=== PATIENT | male | born 1970 | race Caucasian/White ===

== ENCOUNTER 2016-03-27 11:26 | Emergency (ER) | payer SELFPAY ==
[2016-03-27 12:23] VITALS: BP 155/86; PULSE 64; TEMP 98.5
[2016-03-27 12:35] VITALS: BMI 29.8
--- NOTE | 2016-03-27 13:05 | EDPRACDOC ---
- General Stated Complaint: FELL; HIT HEAD Time Seen by Provider: 03/27/16 12:52 - History of Present Illness Onset: 8 HOURS HPI: PT PRESENTS TODAY WITH MILD HEAD AND LEFT LATERAL NECK PAIN AFTER MECHANICAL FALL THIS MORNING. PT STATES THAT HE SLIPPED ON THE ICE OUTSIDE. DENIES LOC , DIZZINESS, CP, SHOB, ABD PAIN, N/V/D. NO APPARENT DISTRESS. Pain Severity: Reports: Mild Injuries/Pain Location: Reports: head, back Reason for Fall: Reports: slipped Loss of Consciousness: no loss of consciousness Associated Symptoms (Fall): Reports: denies symptoms Allergies/Adverse Reactions: Allergies No Known Allergies Allergy (Verified 12/29/15 11:55) Home Medications: Ambulatory Orders Omeprazole 20 mg PO DAILY 06/26/13 Hydrocodone Bit/Acetaminophen [Lortab 5/325] 1 tab PO Q4-6H PRN #15 tab Ibuprofen 800 mg PO TID PRN #30 tablet 12/29/15 Loratadine 10 mg PO DAILY 12/29/15 Terbinafine HCl [Lamisil] 250 mg PO DAILY 12/29/15 Cyclobenzaprine HCl [Flexeril] 10 mg PO TID #21 tab 03/27/16 Meloxicam [Mobic] 7.5 mg PO BID #20 tab 03/27/16 ED Past Medical History - History Reviewed Yes Nurses notes reviewed and agree except as marked - Patient Medical History Respiratory History: Reports: Asthma GI/ History: Reports: Gastroesophageal Reflux Psychological History: Denies: Depression - Social Medical History Smoking Status: Heavy tobacco smoker (5 or more cigarettes/day or daily pipe/ cigar) EDM Review of Systems - Review of Systems ROS Negative Except as Marked: Yes All systems reviewed and were negative except as marked Constitutional: No Symptoms Reported Eyes: No Symptoms Reported Ears: No Symptoms Reported Throat: No Symptoms Reported Nose: No Symptoms Reported Respiratory: No Symptoms Reported Cardiovascular: No Symptoms Reported Gastrointestinal: No Symptoms Reported Neurological: Headache Musculoskeletal: Neck Integumentary: No Symptoms Reported - Physical Exam Constitutional: Alert (Awake), No apparent distress Oriented to: Time, Person, Place Last recorded Vital Signs: Last Vital Signs Temp 98.5 F 03/27/16 12:22 Pulse 64 03/27/16 12:22 Resp 20 03/27/16 12:22 BP 155/86 03/27/16 12:22 Pulse Ox 96 03/27/16 12:22 Oxygen Pulse Oxygen Saturation 96 O2 Device Oxygen Flow Rate Fraction of Inspired Oxygen ( FIO2) - HEENT Head: Normal (NO CLINICAL FINDINGS OF INJURY TO HEAD) Eye Exam: Normal Oropharynx: Normal Tympanic Membrane: Normal ENT EAC: Normal Nose: No Symptoms Reported Neck: Midline (NO BONY TENDERNESS), Paraspinal Tenderness - Respiratory/Cardiovascular Respiratory: Normal - CTA Cardiovascular: Normal - GI Palpation: Normal Tenderness: Non tender - Musculoskeletal Back: Normal Extremities: Normal - Integumentary Skin: Normal Lymphatics: Normal - Neurologic Cerebellar: Normal Mood Description: Normal Thought: Coherent Perception: Normal ED Injury/Fall Exam - Physical Exam Head Injury: no evidence of injury Extremity Exam: no evidence of injury Skin: Normal - [place] Coma Score Best Eye Response ([place]): (4) open spontaneously Best Verbal Response ([place]): (5) oriented Best Motor Response ([place]): (6) obeys commands Bere Total: 15 Decision Time to Discharge: 13:03 - Departure Disposition: Home Condition: Good Final Diagnosis: Fall with no significant injury Qualifiers: Encounter type: initial encounter Qualified Code(s): W19.XXXA - Unspecified fall, initial encounter Instructions: Fall Prevention (ED) Education/Counseling Given To: Patient Education/Counseling Given Regarding: Diagnosis, Treatment, Follow Up Referrals: None,No Provider [Primary Care Provider] - One Week Prescriptions: New Cyclobenzaprine HCl [Flexeril] 10 mg PO TID #21 tab Meloxicam [Mobic] 7.5 mg PO BID #20 tab No Action Omeprazole 20 mg PO DAILY Terbinafine HCl [Lamisil] 250 mg PO DAILY Loratadine 10 mg PO DAILY Hydrocodone Bit/Acetaminophen [Lortab 5/325] 1 tab PO Q4-6H PRN #15 tab PRN Reason: Pain Ibuprofen 800 mg PO TID PRN #30 tablet PRN Reason: Pain Additional Instructions: HEATING PADS TO ACHY MUSCLES FOR ADDITIONAL RELIEF. IF SYMPTOMS WORSEN, RETURN TO ED.
== END 2016-03-27 13:12 | disposition home or self-care (01) ==
LOC: EDMC 11:26
DX: R51 Headache (principal); M54.2 Cervicalgia; W01.0XXA Fall on same level from slipping, tripping and stumbling without subsequent striking against object, initial encounter; Y93.9 Activity, unspecified
CPT/HCPCS: 99282